=== PATIENT | male | born 2000 | race African-American/Black ===

== ENCOUNTER 2019-05-26 16:12 | Emergency (ER) | payer OTHER ==
[~2019-05-26] VITALS: Ht 172.7 cm; Wt 65.0 kg
[2019-05-26] MEDS ORDERED: ACETAMINOPHEN 500MG TABLET PO ONE (17:30)
[2019-05-26 17:57] VITALS: BP 121/68
== END 2019-05-26 17:57 | disposition home or self-care (01) ==
LOC: ER 16:12
DX: J06.9 Acute upper respiratory infection, unspecified (principal)
CPT/HCPCS: 99282